=== PATIENT | male | born 1950 | race Caucasian/White ===

== ENCOUNTER 2022-02-04 08:25 | Day surgery (SDC) | payer MEDICARE, OTHER ==
[~2022-02-04] VITALS: Ht 175.3 cm; Wt 72.7 kg
[~2022-02-04 08:25] MED LIST: ALOGLIPTIN25 MG PO; CALCIUM 600-VI1 EAC9 PO; CYMBALTA60 MG PO; DEEP SEA44 ML NAS; DITROPAN XL5 MG PO; DONEPEZIL HCL5 M1 PO; ERYTHROMYCIN 2%60 ML TOP; FLONASE ALLERG9.9 ML; GLIPIZIDE5 MG PO; INTRINSI B12-F1 EACH PO; JARDIANCE25 MG PO; LEVOTHYROXINE88 MC1 PO; MELATONIN5 M4; MELOXICAM15 MG PO; MEMANTINE HCL5 MG PO; METFORMIN HCL1000 M1 PO; MONTELUKAST SOD10 MG PO; NEURONTIN300 MG PO; OSTERA TABLET1 EACH PO; PLAVIX75 MG PO; PRAVASTATIN SOD40 MG PO; ROPINIROLE HCL1 MG PO; ULTRAM50 MG PO; ZYRTEC10 M3 PO
--- NOTE | 2022-02-04 12:01 | NUR ---
02/04/22 1201 Marilee Jimenez 1151-PATIENT TO PACU ON 2L VIA NC. CHIN LIFT NEEDED. PATIENT IS NONAROUSABLE TO PAINFUL SITMULI. 1153-PATIENT IS NONAROUSABLE TO TACTILE STIMULI. O2 TITRATED OFF. O2 SATS IN THE UPPER 90'S ON RA. PATIENT LAYING ON BACK. 1200-PATIENT IS NONAROUSABLE TO TACTILE STIMULI. PATIENT IS SNORING. VSS. O2 SATS IN THE UPPER 90'S ON RA.
--- NOTE | 2022-02-05 07:33 | OR ---
[facility] [address], [place] [address] Signed DATE OF OPERATION: 02/04/2022 SURGEON: Win Calderon MD PREOPERATIVE DIAGNOSIS: Carpal tunnel syndrome, left. POSTOPERATIVE DIAGNOSIS: Carpal tunnel syndrome, left. PROCEDURE PERFORMED: Carpal tunnel release, left. FILLER MIXER: None. ANESTHESIA: [place] block. TOURNIQUET TIME: 15 minutes. BRIEF HISTORY: Juventino is a 71-year-old gentleman with pain and numbness in his hand. Nerve conduction studies were consistent with carpal tunnel. He wished to proceed with surgery. Risks, benefits, and alternatives were discussed and he elected to proceed. DESCRIPTION OF PROCEDURE: Once consent was obtained, he was taken to the operating room. After adequate anesthesia, he was left on the surgery bed on the hand table. The hand was prepped and draped in the standard sterile fashion. A 1.5 cm incision was made in the distal wrist crease, carried through skin, subcutaneous tissue and directly down on the transverse carpal ligament. The palmaris longus was identified, retracted, and protected. Under loupe magnification, we dissected free the volar side of the transverse carpal ligament. It was then released proximally a centimeter and distally to the distal extent under direct loupe magnification. It was palpated using a [place] and found to be completely released. The wound was copiously irrigated with normal saline, closed with 3-0 nylon and injected with 7 mL of 0.25% plain Marcaine. The wound was dressed with bacitracin, Adaptic, 4x8's, and gauze. He tolerated the procedure well. All sponge, needle, and instrument counts were correct. Electronically Signed By: WIN CALDERON MD 02/05/22 0733 PATIENT NAME: JUVENTINO OWENS OPERATIVE REPORT DATE OF : 46 REPORT #: [id number] PHYSICIAN: WIN CALDERON MD PCP: SILVIANO REYES NP REPORT IS CONFIDENTIAL AND NOT TO BE RELEASED WITHOUT AUTHORIZATION [address] [address] Signed Win Calderon MD BA/VANDANA /[id number] Copies: ~ Electronically Signed By: WIN CALDERON MD 02/05/22 0733 PATIENT NAME: JUVENTINO OWENS OPERATIVE REPORT DATE OF : 46 REPORT #: [id number] PHYSICIAN: WIN CALDERON MD PCP: SILVIANO REYES NP REPORT IS CONFIDENTIAL AND NOT TO BE RELEASED WITHOUT AUTHORIZATION
== END 2022-02-04 12:45 | disposition home or self-care (01) ==
LOC: DS 08:25
PROVIDERS: ATTEND Specialist
PROC: 01N50ZZ Release Median Nerve, Open Approach (ICD-10-PCS; principal; 2022-02-04 11:45)
DX: G56.02 Carpal tunnel syndrome, left upper limb (principal); Z88.8 Allergy status to other drugs, medicaments and biological substances; Z20.822 Contact with and (suspected) exposure to COVID-19
CPT/HCPCS: 87502; C9803; J0690; J2001; J2250; J2704; J7121; U0003

== ENCOUNTER 2022-07-04 16:06 | Emergency (ER) | payer OTHER, MEDICARE ==
[~2022-07-04] VITALS: Ht 175.3 cm; Wt 72.6 kg
[2022-07-04] MEDS ORDERED: ULTRAM50 MG PO (20:45)
== END 2022-07-04 21:11 | disposition home or self-care (01) ==
LOC: ED 16:06
DX: S09.90XA Unspecified injury of head, initial encounter (principal); S16.1XXA Strain of muscle, fascia and tendon at neck level, initial encounter; S39.012A Strain of muscle, fascia and tendon of lower back, initial encounter; S40.011A Contusion of right shoulder, initial encounter; E11.9 Type 2 diabetes mellitus without complications; E03.9 Hypothyroidism, unspecified; Z86.73 Personal history of transient ischemic attack (TIA), and cerebral infarction without residual deficits; Z88.8 Allergy status to other drugs, medicaments and biological substances; Z79.899 Other long term (current) drug therapy; Z79.02 Long term (current) use of antithrombotics/antiplatelets; Z79.84 Long term (current) use of oral hypoglycemic drugs; W00.0XXA Fall on same level due to ice and snow, initial encounter
CPT/HCPCS: 70450; 72100; 72125; 73030; 99284-25; A9270